=== PATIENT | female | born 1995 | race African-American/Black ===

== ENCOUNTER 2018-04-23 23:17 | Emergency (ER) | payer BC, OTHER ==
[2018-04-24] MEDS ORDERED: PROMETHAZINE HCL 25 MG TABLET PO ONE (01:49)
[2018-04-24] MEDS ORDERED: HYDROCODONE/ACETAMINOPHEN 5-325 MG TABLET PO ONE (01:49)
--- NOTE | 2018-04-24 01:51 | ER Document Report ---
ED GI/ - General Chief Complaint: Abdominal Pain Stated Complaint: ABDOMINAL PAIN Time Seen by Provider: 04/24/18 01:43 Notes: Patient is a 22-year-old female that comes to the emergency department with chief complaint of 3 days of worsening sharp pain in the left lower abdominal area. She states intermittently she has had nausea. She denies vaginal bleeding, discharge, dysuria, flank pain, fever/chills. She is sexually active with her significant other. She is on oral contraceptive, has not had a menstrual cycle in 5 months. Only past medical history reportedly is tonsillectomy. She reports normal bowel movements. TRAVEL OUTSIDE OF THE [place] IN LAST 30 DAYS: No - Related Data Allergies/Adverse Reactions: No Known Allergies Allergy (Unverified 05/13/15 14:07) Past Medical History - General Information source: Patient - Social History Smoking Status: Never Smoker Frequency of alcohol use: None Drug Abuse: None Lives with: Family Family History: Arthritis, CAD, DM, Hyperlipidemia, Hypertension. denies: CVA, Malignancy, Thyroid Disfunction Past Surgical History: Reports: Hx Tonsillectomy - Immunizations Immunizations up to date: Yes Hx Diphtheria, Pertussis, Tetanus Vaccination: Yes Review of Systems - Review of Systems Constitutional: No symptoms reported EENT: No symptoms reported Cardiovascular: No symptoms reported Respiratory: No symptoms reported Gastrointestinal: See HPI Genitourinary: See HPI Female Genitourinary: See HPI Musculoskeletal: No symptoms reported Skin: No symptoms reported Hematologic/Lymphatic: No symptoms reported Neurological/Psychological: No symptoms reported Physical Exam - Vital signs Vitals: Temp Pulse Resp BP Pulse Ox 97.5 F 54 L 16 118/65 99 04/24/18 04:48 04/24/18 04:48 04/24/18 04:48 04/24/18 04:48 04/24/18 04:48 - Notes Notes: GENERAL: Alert, interacts well. No acute distress. HEAD: Normocephalic, atraumatic. EYES: Pupils equal, round, and reactive to light. Extraocular movements intact. ENT: Oral mucosa moist, tongue midline. Oropharynx unremarkable. Airway patent. Nares patent, no nasal septal hematoma, TM's intact. NECK: Full range of motion. Supple. Trachea midline. LUNGS: Clear to auscultation bilaterally, no wheezes, rales, or rhonchi. No respiratory distress. HEART: Regular rate and rhythm. No murmur ABDOMEN: Mild generalized lower abdominal tenderness, slightly worse on the right, no guarding or rigidity. Upper abdomen benign. GENITOURINARY: Deferred EXTREMITIES: Moves all 4 extremities spontaneously. No edema, normal radial and dorsalis pedis pulses bilaterally. No cyanosis. BACK: no cervical, thoracic, lumbar midline tenderness. No saddle anesthesia, normal distal neurovascular exam. NEUROLOGICAL: Alert and oriented x3. Normal speech. [cranial nerves II through XII grossly intact]. PSYCH: Normal affect, normal mood. SKIN: Warm, dry, normal turgor. No rashes or lesions noted. Course - Re-evaluation Re-evalutation: Patient is well-appearing and very talkative. She does have some generalized lower abdominal pain which is mild. Very low suspicion of acute abdomen. CBC unremarkable, chemistry unremarkable. Urine is contaminated but does have a lot of white blood cells, more than the squamous epithelials. test is negative. Ultrasound showing borderline endometrial thickening, otherwise unremarkable. Discussed results, discussed option of pelvic exam but this was declined. After discussion decision was made to treat patient for possible UTI, given symptomatic nausea medication, otherwise patient will follow-up with primary care and return for any concerning worsening symptoms. Patient states satisfaction and agreement. - Vital Signs Vital signs: Temp Pulse Resp BP Pulse Ox 97.5 F 54 L 16 118/65 99 04/24/18 04:48 04/24/18 04:48 04/24/18 04:48 04/24/18 04:48 04/24/18 04:48 - Laboratory Result Diagrams: 04/24/18 02:00 04/24/18 02:00 Laboratory results interpreted by me: 04/24/18 04/24/18 02:00 02:10 Chloride 108 H Urine Urobilinogen 2.0 H Ur Leukocyte Esterase LARGE H Discharge - Discharge Clinical Impression: Lower abdominal pain Condition: Stable Disposition: HOME, SELF-CARE Additional Instructions: Your ultrasound does not show any concerning findings at this time. We are covering you for possible urinary tract infection. It is possible that he had a cyst which already ruptured. Follow-up with primary care. Take antibiotic as prescribed, take Phenergan if needed for nausea. Return if you worsen including severe abdominal pain, fever, vomiting, or any other concerning or worsening symptoms. Prescriptions: Cephalexin Monohydrate [Keflex 500 mg Capsule] 500 mg PO BID #10 capsule Promethazine HCl [Phenergan 25 mg Tablet] 25 mg PO Q6H PRN #15 tablet PRN Reason:
[2018-04-24 02:13] LABS: ABSOLUTE EOSINOPHILS # (AUTO) 0.2 10^3/uL (0.0-0.6); ABSOLUTE LYMPHOCYTES (AUTO) 3.1 10^3/uL (0.5-4.7); ABSOLUTE MONOCYTES (AUTO) 0.6 10^3/uL (0.1-1.4); ABSOLUTE NEUT (AUTO) 4.7 10^3/uL (1.7-8.2); BASOPHILS % (AUTO) 0.2 % (0-2); HEMATOCRIT 38.7 % (36.0-47.0); HEMOGLOBIN 13.3 g/dL (12.0-15.5); MEAN CORPUSCULAR HEMOGLOBIN 30.2 pg (27.0-33.4); MEAN CORPUSCULAR HGB CONC 34.3 g/dL (32.0-36.0); MEAN CORPUSCULAR VOLUME 88 fl (80-97); MONOCYTES % (AUTO) 6.5 % (3-13); PLATELET COUNT 276 10^3/uL (150-450); RED BLOOD COUNT 4.39 10^6/uL (3.72-5.28); RED CELL DISTRIBUTION WIDTH 12.8 % (11.5-14.0); SEGMENTED NEUTROPHILS % (AUTO) 55.3 % (42-78); TOTAL CELLS COUNTED % (AUTO) 100 %; WHITE BLOOD COUNT 8.5 10^3/uL (4.0-10.5)
[2018-04-24 02:24] LABS: APPEARANCE,URINE CLOUDY; BILIRUBIN,URINE NEGATIVE (NEGATIVE); COLOR,URINE YELLOW; GLUCOSE, URINE NEGATIVE (NEGATIVE); KETONES,URINE NEGATIVE (NEGATIVE); LEUKOCYTE ESTERASE,URINE LARGE (NEGATIVE); NITRITE,URINE NEGATIVE (NEGATIVE); PROTEIN,URINE NEGATIVE (NEGATIVE); URINE SPECIFIC GRAVITY 1.027
[2018-04-24 02:58] LABS: ANION GAP 10 (5-19); BLOOD UREA NITROGEN 14 mg/dL (7-20); CALCIUM 9.5 mg/dL (8.4-10.2); CARBON DIOXIDE 23 mmol/L (22-30); CHLORIDE 108 mmol/L (98-107); GLUCOSE 87 mg/dL (75-110); POTASSIUM 3.9 mmol/L (3.6-5.0); SODIUM 141.1 mmol/L (137-145)
--- NOTE | 2018-04-24 03:29 | RADIOLOGY REPORT (SQ) ---
CLINICAL HISTORY: sharp LLQ pain, nausea COMPARISON: None. TECHNIQUE: US TRANSVAGINAL on 04/24/2018 1:50 AM CDT FINDINGS: Uterus measures 8.2 cm in length. Endometrial stripe measures 1.8 cm. Right ovary measures 4.0 x 2.5 x 3.1 cm and left ovary measures 2.7 x 2.6 x 3.0 cm. There is patent flow. IMPRESSION: Mildly thickened endometrial stripe. Otherwise no significant abnormalities.
[2018-04-24] MEDS ORDERED: CEPHALEXIN 500 MG CAPSULE PO ONE (03:41)
[2018-04-24] MEDS ORDERED: HYDROCODONE/ACETAMINOPHEN 5-325 MG (6 TAB/ER DISP) PO PRN (03:41)
[2018-04-24 04:50] VITALS: BP 118/65
== END 2018-04-24 04:15 | disposition home or self-care (01) ==
LOC: ER 23:17
DX: R10.32 Left lower quadrant pain (principal); R11.0 Nausea; Z79.3 Long term (current) use of hormonal contraceptives
CPT/HCPCS: 36415; 76830; 80048; 81001; 81025; 85025; 93976; 99284

== ENCOUNTER 2018-11-08 17:13 | Emergency (ER) | payer SELFPAY ==
--- NOTE | 2018-11-08 17:43 | ER Document Report ---
ED Medical Screen (RME) - General Stated Complaint: HEAVY VAGINAL BLEEDING Time Seen by Provider: 11/08/18 17:40 Mode of Arrival: Ambulatory Information source: Patient Notes: 22-year-old female presents to ED for vaginal bleeding for 4 months. She states it was light until about 10 days ago then about 10 days ago she started having heavy cramping and then she goes to 4-5 pads a day. She states sometimes in the morning it does not look like it is bleeding much at all then later in the day or become very heavy and then later it would be almost light again. She states is been going on for the last 10 days. She states she has never smoked she does drink maybe 2 times a month works as a stock or delivery clerk. She states she lives with roommates. She has had a tonsillectomy and has been diagnosed with PCOS. I have greeted and performed a rapid initial assessment of this patient. A comprehensive ED assessment and evaluation of the patient, analysis of test results and completion of medical decision making process will be conducted by an additional ED providers. TRAVEL OUTSIDE OF THE [place] IN LAST 30 DAYS: No - Related Data Allergies/Adverse Reactions: No Known Allergies Allergy (Unverified 05/13/15 14:07) Past Medical History Renal/ Medical History: Denies: Hx Peritoneal Dialysis Past Surgical History: Reports: Hx Tonsillectomy - Immunizations Immunizations up to date: Yes Hx Diphtheria, Pertussis, Tetanus Vaccination: Yes Physical Exam - Vital signs Vitals: Temp Pulse Resp BP Pulse Ox 98.2 F 84 15 141/72 H 97 11/08/18 17:17 11/08/18 17:17 11/08/18 17:17 11/08/18 17:17 11/08/18 17:17 Course - Vital Signs Vital signs: Temp Pulse Resp BP Pulse Ox 98.2 F 84 15 141/72 H 97 11/08/18 17:17 11/08/18 17:17 11/08/18 17:17 11/08/18 17:17 11/08/18 17:17
[2018-11-08 18:31] LABS: ABSOLUTE BASOPHILS # (AUTO) 0.1 10^3/uL (0.0-0.2); ABSOLUTE EOSINOPHILS # (AUTO) 0.1 10^3/uL (0.0-0.6); ABSOLUTE LYMPHOCYTES (AUTO) 2.8 10^3/uL (0.5-4.7); ABSOLUTE MONOCYTES (AUTO) 0.5 10^3/uL (0.1-1.4); ABSOLUTE NEUT (AUTO) 5.6 10^3/uL (1.7-8.2); BASOPHILS % (AUTO) 0.6 % (0-2); EOSINOPHILS % (AUTO) 1.2 % (0-6); HEMATOCRIT 41.9 % (36.0-47.0); HEMOGLOBIN 14.4 g/dL (12.0-15.5); LYMPHOCYTES % (AUTO) 30.6 % (13-45); MEAN CORPUSCULAR HEMOGLOBIN 30.9 pg (27.0-33.4); MEAN CORPUSCULAR HGB CONC 34.4 g/dL (32.0-36.0); MEAN CORPUSCULAR VOLUME 90 fl (80-97); MONOCYTES % (AUTO) 5.4 % (3-13); PLATELET COUNT 300 10^3/uL (150-450); RED BLOOD COUNT 4.67 10^6/uL (3.72-5.28); SEGMENTED NEUTROPHILS % (AUTO) 62.2 % (42-78); TOTAL CELLS COUNTED % (AUTO) 100 %
[2018-11-08 18:59] LABS: ALBUMIN 4.6 g/dL (3.5-5.0); ALKALINE PHOSPHATASE 113 U/L (38-126); ANION GAP 12 (5-19); ASPARTATE AMINO TRANSFERASE 51 U/L (14-36); BILIRUBIN,DIRECT 0.1 mg/dL (0.0-0.4); BILIRUBIN,TOTAL 0.8 mg/dL (0.2-1.3); BLOOD UREA NITROGEN 16 mg/dL (7-20); CARBON DIOXIDE 24 mmol/L (22-30); CHLORIDE 103 mmol/L (98-107); GLUCOSE 86 mg/dL (75-110); POTASSIUM 4.5 mmol/L (3.6-5.0); TOTAL PROTEIN 8.2 g/dL (6.3-8.2)
[2018-11-08 19:00] LABS: APPEARANCE,URINE CLEAR; BILIRUBIN,URINE NEGATIVE (NEGATIVE); COLOR,URINE STRAW; GLUCOSE, URINE NEGATIVE (NEGATIVE); KETONES,URINE NEGATIVE (NEGATIVE); LEUKOCYTE ESTERASE,URINE NEGATIVE (NEGATIVE); NITRITE,URINE NEGATIVE (NEGATIVE); PROTEIN,URINE NEGATIVE (NEGATIVE); URINE SPECIFIC GRAVITY 1.008; UROBILINOGEN,URINE NEGATIVE mg/dL (<2.0)
--- NOTE | 2018-11-08 19:00 | ER Document Report ---
ED GI/ - General Chief Complaint: Vaginal Bleeding Stated Complaint: HEAVY VAGINAL BLEEDING Time Seen by Provider: 11/08/18 17:40 Primary Care Provider: SHIRLEY ARREGUIN NP-C [Primary Care Provider] - Follow up as needed Mode of Arrival: Ambulatory Notes: Patient is a 22-year-old female presents to the emergency department with a chief complaint of vaginal bleeding. Patient reports she has been on oral control pill for over 1 year. Patient reports she did not have a period for up to 6 months and 4 months ago she did start to have some vaginal bleeding. Patient reports that until 11 days ago this is more like spotting. Patient reports she has had 11 days of heavy vaginal bleeding with cramps and blood clots. Patient reports today she has been through 3 sanitation pads. Patient reports typically she does not have cramps with her menstrual cycle. Patient does report a history of PCOS. Patient reports she does not have an PROTOZOOLOGIST but does go to her primary care physician for her control and pelvic examinations. Patient denies fever. Patient denies nausea, vomiting or diarrhea. TRAVEL OUTSIDE OF THE [place] IN LAST 30 DAYS: No - Related Data Allergies/Adverse Reactions: No Known Allergies Allergy (Unverified 05/13/15 14:07) Past Medical History - General Information source: Patient - Social History Smoking Status: Never Smoker Frequency of alcohol use: Occasional Drug Abuse: None Lives with: Spouse/Significant other Family History: Arthritis, CAD, DM, Hyperlipidemia, Hypertension. denies: CVA, Malignancy, Thyroid Disfunction Patient has suicidal ideation: No Patient has homicidal ideation: No - Past Medical History Cardiac Medical History: Reports: None Pulmonary Medical History: Reports: None EENT Medical History: Reports: None Neurological Medical History: Reports: None Endocrine Medical History: Reports: None Renal/ Medical History: Reports: None. Denies: Hx Peritoneal Dialysis Malignancy Medical History: Reports: None GI Medical History: Reports: None Musculoskeletal Medical History: Reports None Skin Medical History: Reports None Psychiatric Medical History: Reports: None Traumatic Medical History: Reports: None Infectious Medical History: Reports: None Past Surgical History: Reports: Hx Tonsillectomy - Immunizations Immunizations up to date: Yes Hx Diphtheria, Pertussis, Tetanus Vaccination: Yes Review of Systems - Review of Systems Constitutional: No symptoms reported EENT: No symptoms reported Cardiovascular: No symptoms reported Respiratory: No symptoms reported Gastrointestinal: No symptoms reported Genitourinary: No symptoms reported Female Genitourinary: See HPI Musculoskeletal: No symptoms reported Skin: No symptoms reported Hematologic/Lymphatic: No symptoms reported Neurological/Psychological: No symptoms reported Physical Exam - Vital signs Vitals: Temp Pulse Resp BP Pulse Ox 98.2 F 84 15 141/72 H 97 11/08/18 17:17 11/08/18 17:17 11/08/18 17:17 11/08/18 17:17 11/08/18 17:17 Interpretation: Normal - Notes Notes: GENERAL: Well-appearing, well-nourished and in no acute distress. HEAD: Atraumatic, normocephalic. EYES: Pupils equal round and reactive to light, extraocular movements intact, sclera anicteric, conjunctiva are normal. ENT: TMs normal, nares patent, oropharynx clear without exudates. Moist mucous membranes. NECK: Normal range of motion, supple without lymphadenopathy or JVD. LUNGS: Breath sounds clear to auscultation bilaterally and equal. No wheezes rales or rhonchi. HEART: Regular rate and rhythm without murmurs, rubs or gallops. ABDOMEN: Soft, nontender, normoactive bowel sounds. No guarding, no rebound. No masses appreciated. BACK: No cervical, thoracic, lumbar midline tenderness. No saddle anesthesia, normal distal neurovascular exam. GENITOURINARY: Deferred. EXTREMITIES: Normal range of motion, no pitting or edema. No clubbing or cyanosis. NEUROLOGICAL: Cranial nerves II through XII grossly intact. Normal speech, normal gait. PSYCH: Normal mood, normal affect. SKIN: Warm, Dry, normal turgor, no rashes or lesions noted. Course - Re-evaluation Re-evalutation: 11/08/18 20:57 Did inform the patient that her AST was slightly elevated. Patient reports she has been told this in the past. I did inform her to follow-up with her primary care physician in regards to this so they can monitor appropriately. I did inform the patient she does need to follow-up with either PROTOZOOLOGIST or her primary in regards to the vaginal bleeding. Patient is nontoxic-appearing in no acute d istress. - Vital Signs Vital signs: Temp Pulse Resp BP Pulse Ox 98.2 F 73 16 134/71 H 96 11/08/18 20:54 11/08/18 20:54 11/08/18 20:54 11/08/18 20:54 11/08/18 20:54 - Laboratory Result Diagrams: 11/08/18 18:15 11/08/18 18:15 Laboratory results interpreted by me: 11/08/18 11/08/18 18:15 18:15 AST 51 H Urine Blood LARGE H Laboratory 11/08/18 11/08/18 11/08/18 18:15 18:15 18:15 WBC 9.0 RBC 4.67 Hgb 14.4 Hct 41.9 MCV 90 MCH 30.9 MCHC 34.4 RDW 13.0 Plt Count 300 Lymph % (Auto) 30.6 Kinney % (Auto) 5.4 Eos % (Auto) 1.2 Baso % (Auto) 0.6 Absolute Neuts (auto) 5.6 Absolute Lymphs (auto) 2.8 Absolute Monos (auto) 0.5 Absolute Eos (auto) 0.1 Absolute Basos (auto) 0.1 Seg Neutrophils % 62.2 Sodium 138.5 Potassium 4.5 Chloride 103 Carbon Dioxide 24 Anion Gap 12 BUN 16 Creatinine 0.76 Est GFR ( Amer) > 60 Est GFR (MDRD) Non-Af > 60 Glucose 86 Calcium 10.0 Total Bilirubin 0.8 Direct Bilirubin 0.1 Neonat Total Bilirubin Not Reportable Neonat Direct Bilirubin Not Reportable Neonat Indirect Bili Not Reportable AST 51 H ALT 80 Alkaline Phosphatase 113 Total Protein 8.2 Albumin 4.6 Serum HCG, Qual NEGATIVE Urine Color Urine Appearance Urine pH Ur Specific [place] Urine Protein Urine Glucose (UA) Urine Ketones Urine Blood Urine Nitrite Urine Bilirubin Urine Urobilinogen Ur Leukocyte Esterase Urine WBC (Auto) Urine RBC (Auto) Squamous Epi Cells Auto Urine Mucus (Auto) Urine Ascorbic Acid Blood Type Rhogam Indicated 11/08/18 11/08/18 18:15 18:15 WBC RBC Hgb Hct MCV MCH MCHC RDW Plt Count Lymph % (Auto) Kinney % (Auto) Eos % (Auto) Baso % (Auto) Absolute Neuts (auto) Absolute Lymphs (auto) Absolute Monos (auto) Absolute Eos (auto) Absolute Basos (auto) Seg Neutrophils % Sodium Potassium Chloride Carbon Dioxide Anion Gap BUN Creatinine Est GFR ( Amer) Est GFR (MDRD) Non-Af Glucose Calcium Total Bilirubin Direct Bilirubin Neonat Total Bilirubin Neonat Direct Bilirubin Neonat Indirect Bili AST ALT Alkaline Phosphatase Total Protein Albumin Serum HCG, Qual Urine Color STRAW Urine Appearance CLEAR Urine pH 6.0 Ur Specific [place] 1.008 Urine Protein NEGATIVE Urine Glucose (UA) NEGATIVE Urine Ketones NEGATIVE Urine Blood LARGE H Urine Nitrite NEGATIVE Urine Bilirubin NEGATIVE Urine Urobilinogen NEGATIVE Ur Leukocyte Esterase NEGATIVE Urine WBC (Auto) 1 Urine RBC (Auto) 0 Squamous Epi Cells Auto <1 Urine Mucus (Auto) RARE Urine Ascorbic Acid NEGATIVE Blood Type A POSITIVE Rhogam Indicated RHOGAM NOT INDICATED - Diagnostic Test Radiology reviewed: Reports reviewed Radiology results interpreted by me: 11/08/18 20:02 Transvaginal US 11/08/18 17:41 IMPRESSION: NORMAL TRANSVAGINAL PELVIC ULTRASOUND. Procedures - Pelvic Exam Pelvic exam Time completed: 20:20 Cultures obtained: Yes Wet prep obtained: Yes Witnessed by: Bobo ARAGON Notes: 11/08/18 20:26 External genitalia was unremarkable. Patient tolerated the insertion of the speculum well. I was able to visualize the cervix which was closed. Patient did not have any bleeding around the cervix or in the vaginal vault. There is no blood clots visualized. Discharge - Discharge Clinical Impression: Vaginal bleeding Condition: Stable Disposition: HOME, SELF-CARE Additional Instructions: Today you are seen the emergency department for vaginal bleeding. Please continue your oral control medication and please follow-up with your primary care physician. The ultrasound did not show any concerning reason as to why you may be bleeding. During her pelvic exam there is no active bleeding. Vaginal bleeding can be related to side effects from certain medications as well as hormone imbalances. I provided you with some referrals to PROTOZOOLOGIST's in the area. Currently you are not anemic and do not show signs of infection. Please return the emergency department if you are having severe vaginal bleeding, become lightheaded, pass out, soaking through multiple pads per hour or any other concerning signs or symptoms. VAGINAL BLEEDING: You are having an episode of abnormal bleeding. Causes of abnormal vaginal bleeding can include miscarriage or tubal , tumors such as cancer or benign fibroids, medication effects, or hormone imbalance. Testing can eliminate unsuspected , tumors, or infection as a cause. "Dysfunctional uterine bleeding" is due to hormone imbalance, and is especially common at times when the normal cycle is disturbed -- whether by recent , use of control pills or hormones, or impending menopause. If the bleeding is innocent, most commonly a short course of h ormones is given to restore the uterus to normal. Sometimes, the normal menstrual cycle corrects itself naturally. Sometimes, brief hormone therapy, or even a D&C is required. Your physician wi ll advise you. Treatment for anemia may be required if bleeding is severe. You should rest and avoid intercourse until the bleeding is controlled. Call the doctor or return for re-examination if you feel faint, have increasing pain, or have a major increase in the amount of bleeding. FIBROIDS: Fibroids are benign growths or tumors in the uterus. They can cause enlargement of the uterus, irregular bleeding, severe bleeding with periods, and abdominal pain. Anemia may result if periods are heavy. Fibroids tend to grow until menopause, then slowly shrink. If fibroids cause severe symptoms, they can be treated surgically. Call or return if vaginal bleeding or pain becomes severe. NORMAL EXAM AND WORKUP: At this time, except for vaginal bleeding, your examination and workup show no significant abnormality. No significant abnormal physical findings were note d. All laboratory, EKG, and imaging (x-ray, CT scans, ultrasound) studies that were ordered show no significant abnormality. Although your examination and all studies that were ordered showed no significant abnormal finding, there are no examinations and no studies that are 100% accurate. There is always the possibility that some abnormality could exist and not be detected with physical examination or within the limits and capabilities of laboratory and other studies. You should return or follow up as you were instructed on your visit today for further evaluation if your symptoms do not resolve. PROVERA: Provera (medroxyprogesterone) is usually used to stop excessive uterine bleeding or to regulate the periods. Provera is a form of progesterone, the hormone that stimulates the uterus lining to mature during the second half of your cycle. High doses of Provera can usually stop uterine bleeding. It's most useful for the abnormal bleeding that occurs when periods are irregular, such as around menopause. Provera usually isn't helpful for bleeding that occurs after Depo- Provera or Norplant. There is often another heavy "period" when you finish the Provera. Afterwards, the periods usually return to normal within a month or two. Contact your doctor if bleeding becomes more severe, or if you develop abdominal pain, lightheadedness, fever, or other new symptoms. FOLLOW-UP CARE: If you have been referred to a physician for follow-up care, call the physicians office for an appointment as you were instructed or within the next two days. If you experience worsening or a significant change in your symptoms (very heavy bleeding with large clots of blood, passage of tissue, more severe abdominal / pelvic pain or cramping, feeling faint or severe weakness, fever, etc.), notify the physician immediately or return to the Emergency Department at any time for re-evaluation. OBSTETRIC-GYNECOLOGIC (OB-CUSTOMER SERVICE TECHNICIAN) PHYSICIANS IN [place]: [facility] [address] [place], [place] [phone] [facility] [address] [place] [address] [phone] Referrals: SHIRLEY ARREGUIN, FELT COVERER-C [Primary Care Provider] - Follow up as needed
--- NOTE | 2018-11-08 19:57 | RADIOLOGY REPORT (SQ) ---
EXAM DESCRIPTION: U/S NON OB PEL TV W/DOPPLER COMPLETED DATE/TIME: 11/08/2018 7:48 pm REASON FOR STUDY: vaginal bleeding off and on for 4 months LMP unknown COMPARISON: 04/24/2018 TECHNIQUE: Dynamic and static grayscale images acquired of the pelvis via transvaginal approach and recorded on PACS. Additional selected color Doppler and spectral images recorded. LIMITATIONS: None. FINDINGS: UTERUS: Contour normal. No mass. ENDOMETRIAL STRIPE: No focal or generalized thickening. No masses. CERVIX: 2.2 cm. No nabothian cysts. RIGHT OVARY AND DOPPLER: Normal size. No worrisome masses. Normal arterial vascular flow without evid ence for torsion. LEFT OVARY AND DOPPLER: Normal size. No worrisome masses. Normal arterial vascular flow without evide nce for torsion. FREE FLUID: None noted. OTHER: No other significant finding. MEASUREMENTS: UTERUS: 7.4 x 4.7 x 4.2 cm. ENDOMETRIAL STRIPE: 8 mm. RIGHT OVARY: 4.2 x 2.9 x 2.3 cm. LEFT OVARY: 2.1 x 2.2 x 3.4 cm. IMPRESSION: NORMAL TRANSVAGINAL PELVIC ULTRASOUND. TECHNICAL DOCUMENTATION: JOB ID: [id number] [employer]- All Rights Reserved Rev Reading location - IP/workstation name: [email or web address]
[2018-11-08 20:32] LABS: RBCS (WET MOUNT) NO RBCS SEEN; T.VAGINALIS (WET MOUNT) NO TRICHOMONAS SEEN; WBCS (WET MOUNT) RARE WBCS SEEN; YEAST (WET MOUNT) NO YEAST SEEN
[2018-11-08 20:56] VITALS: BP 134/71
[2018-11-08 22:03] LABS: CHLAM PCR NOT DETECTED (NOT DETECT)
== END 2018-11-08 20:56 | disposition home or self-care (01) ==
LOC: ER 17:13
DX: N93.9 Abnormal uterine and vaginal bleeding, unspecified (principal); E28.2 Polycystic ovarian syndrome; Z79.3 Long term (current) use of hormonal contraceptives; R74.0 Nonspecific elevation of levels of transaminase and lactic acid dehydrogenase [LDH]
CPT/HCPCS: 36415; 76830; 80053; 81001; 84703; 85025; 86900; 86901; 87210; 87491; 87591; 93976